=== PATIENT | female | born 1995 | race Caucasian/White ===

== ENCOUNTER 2019-04-05 04:00 | Inpatient (IN) ==
[2019-04-05] MEDS ORDERED: Naloxone 0.4 MG/ML INJ IVP PRN (08:23)
[2019-04-05] MEDS ORDERED: Famotidine 20 MG/2 ML VIAL IVP PRN (08:23)
[2019-04-05] MEDS ORDERED: Metoclopramide 10 MG/2 ML VIAL IVP PRN (08:23)
[2019-04-05] MEDS ORDERED: *HR* Nalbuphine 10 MG/ML AMPUL IVP PRN (08:23)
[2019-04-05] MEDS ORDERED: Ondansetron 4 MG/2 ML VIAL IVP PRN (08:23)
[2019-04-05] MEDS ORDERED: Oxytocin 20 units/ LR 1000 mL 20 UNIT/1,000 ML BAG IVC SCH ×2 (08:30→19:45)
[2019-04-05] MEDS ORDERED: Ringers Solution, Lactated 1,000 ML IVC SCH (08:30)
[2019-04-05 09:02] LABS: Basophils % 0.5 %; Eosinophils % 0.4 %; Hematocrit 35.8 % (35.3-44.9); Hemoglobin 12.3 g/dL (11.5-15.4); Immature Granulocytes % 0.8 % (0-4); Lymphocytes # 1.6 K/mcL (0.6-4.6); Lymphocytes % 19.4 %; Mean Corpuscular HGB Conc 34.4 g/dL (31.6-35.5); Mean Platelet Volume 9.6 fL (9.4-12.4); Monocytes # 0.5 K/mcL (0.0-1.3); Monocytes % 5.4 %; Neutrophils # 6.1 K/mcL (1.6-8.9); Platelet Count 202 K/mcL (140-400); Red Blood Count 3.73 M/mcL (3.82-4.97); Red Cell Distribution Width 12.2 % (11.5-14.5); Segmented Neutrophils % 73.5 %; White Blood Count 8.3 K/mcL (4.3-11.1)
[2019-04-05 09:11] LABS: Amphetamine Screen,Urine Negative ng/mL (Cutoff=1000); Barbiturate Screen,Urine Negative ng/mL (Cutoff=200); Benzodiazepines Screen,Urine Negative ng/mL (Cutoff=200); Cannabinoid Screen,Urine Negative ng/mL (Cutoff = 50); Cocaine Screen,Urine Negative ng/mL (Cutoff= 300); Opiate Screen,Urine Negative ng/mL (Cutoff=300); Phencyclidine Screen,Urine Negative ng/mL (Cutoff=25)
[2019-04-05] MEDS ORDERED: D5% in 0.45% NACL 1,000 ML IVC ONE (11:41)
--- NOTE | 2019-04-05 12:44 | Event Note ---
Date of Encounter: 04/05/19 Time of Encounter: 12:43 Patient doing well. Patient tracing looks good currently. Was having some late decelerations early on. These have since resolved. On vaginal exam patient is 2-3 cm 70% effaced and a -1 station. Rubin induction begun. We will start with Pitocin. Discussed risks of section due to tracing. Patient understands this completely. We will continue induction.
--- NOTE | 2019-04-05 12:48 | OB/GYN History & Physical ---
Date of Encounter: 04/05/19 Time of Encounter: 12:45 History of Present Illness Chief complaint: induction HPI: Ms. Blandon is a 24 year old female , ` who presents today at 39 weeks and 2 days for induction of labor. Patient is doing well today. She is having no complaints. Her induction was discussed she understands this completely and does wish to proceed today. She has no drug allergies. She is currently on vitamins. She is no chronic medical conditions. Surgical history includes wisdom teeth extraction. Socially she denies tobacco, alcohol, illicit drug use. She has no history of abnormal passers, STDs or pelvic infections. Family history is noncontributory. Obstetric history significant for 2 early miscarriages Past Med Surg Social Fam HX - Past Medical History Medical history: no medical history, other Additional medical history: miscarriage x2 Psychiatric history: no psych history - Past Surgical History Surgical History: no surgical history - Social History Smoking Status: Never smoker Smokeless Tobacco Status: No Alcohol use: none Drug use: none - Family History Mother Living Status: Still Living Hx Family Cardiac Disorders: No Hx Family Respiratory Disorders: No Hx Family Cancer: No Hx Family GI Disorders: No Hx Family Genitourinary Disorders: No Hx Family Endocrine Disorder: No Hx Family Musculoskeletal Disorders: No Hx Family Neuromuscular Disorders: No Hx Family Neurologic Disorders: No Hx Family HEENT Disorders: No Hx Family Autoimmune Disorders: No Hx Family Reproductive Disorders: No Hx Family Psychosocial Disorders: No Hx Family Medical Disorders: No Obstetrical History - Pregnancies : 3 Para: 0 Ab's: 2 Livin Medications and Allergies Allergy/AdvReac Type Severity Reaction Status Date / Time No Known Allergies Allergy Verified 04/05/19 08:22 Review of System OB All systems PM: reviewed and no additional remarkable complaints except as stated Exam - Vital Signs Vital signs: Initial Vital Signs Temp Pulse Resp BP 97.3 F L 72 16 117/73 04/05/19 09:24 04/05/19 09:24 04/05/19 09:24 04/05/19 09:24 - Constitutional Constitutional: well developed, well nourished, no acute distress, average body habitus - HEENT HEENT: EOMI, PERRL, Normocephaly - Neck Neck exam: full ROM, normal inspection - Lungs Respiratory exam: CTAB - Cardiovascular Cardiovascular exam: RRR - Abdomen Abdomen: Present: bowel sounds normal, gravid, non tender - Extremities Extremities exam: full ROM - Vagina Vagina: Present: normal moisture - Cervix Dilation: 3 Effacement: 70 Station: -1 - Uterus Uterus exam: Present: normal size Results Result Diagrams: 04/05/19 08:40 Abnormal lab results RBC 3.73 M/mcL (3.82-4.97) L 04/05/19 08:40 All other labs normal. - VTE Reasons for not Prescribing Prophylaxis: Treatment not Indicated - Low risk for VTE
[2019-04-05] MEDS ORDERED: Epidural Premix (fent/bupiv) 110 ML EP ONE (15:21)
[2019-04-05] MEDS ORDERED: Epidural Premix (fent/bupiv) 110 ML EP SCH (15:30)
--- NOTE | 2019-04-05 15:30 | Anesthesia Evaluation PreOp ---
Date of Encounter: 04/05/19 Time of Encounter: 15:30 - Past History Planned Operation: lyla Cardiac History: Denies any Significant Hx Pulmonary History: Denies Any Significant HX PATIENT REGISTRATION CLERK History: Denies Any Significant HX Other Medical History: Denies Any Significant HX Anesthesia History: No Prior Anesthetic Complications : Yes Test: Positive Alcohol Use: none Drug use: none Medications and Allergies Allergy/AdvReac Type Severity Reaction Status Date / Time No Known Allergies Allergy Verified 04/05/19 08:22 - Meds/Allergy Pre-op Review Medications Reviewed: Yes Allergies Reviewed: Yes Beta Blockers on Current Med List: No Anesthesia Results - Labs 04/05/19 08:40 Anesthesia Exam Height: 1.8 Weight: 90kg NPO (# of Hours): mn Pain Scale: 0 - HEENT Pupil (Motor): Pupils equal Mallampati: II Teeth: Normal Oral Opening: Greater than 3 - PATIENT REGISTRATION CLERK LOC: Oriented PATIENT REGISTRATION CLERK Motor: Normal RUE, Normal LUE, Normal RLE, Normal LLE, Normal Face PATIENT REGISTRATION CLERK Sensory: Normal: RUE, LUE, RLE, LLE, Face - Cardiac Rhythm: Regular Murmur: None JVD: No Carotid Bruit: No - Pulmonary Breath Sounds: bilateral Clear Respiratory Effort: Symmetrical Anesthesia Assess/Plan ASA Score: 1 Anesthetic Plan: Epidural Monitoring Plan: Standard Monitors
[2019-04-05] MEDS ORDERED: miSOPROStol 25 MCG TABLET VG SCH (16:00)
--- NOTE | 2019-04-05 16:01 | Anesthesia Procedures ---
Date of Encounter: 04/05/19 Time of Encounter: 16:00 Procedures: Anesthesia - Epidural/Spinal Patient ID/Chart reviewed: Yes Patient examined: Yes OB Eval: : 3 OB Eval: Hx Para: 0 OB Eval: Dilated at (cm): 3 OB Eval: Contractions: Non-stressed pattern Consent Obtained: Yes Site Prep: Aseptic Technique, Sterile prep and drape, Povidone-Iodine 1% Patient position: upright Amount of Local Anesthetic used: 3 Touhy Needle Gauge: 18 Touhy Needle Depth (cm): 6 Catheter Depth at Skin (cm): 10 Test Dose (1.5% Lido + Epi): Volume given (mls): 3 Test Dose Result: Negative Loading Dose Administered: Thru Catheter Infusion Rate (mls/hr): [address]: Tegaderm, Tape Interspace Used: L4-L5 Loss of Resistance (EPHRAIM): Yes Blood: No CSF: No Paresthesia: No
[2019-04-05] MEDS ORDERED: 0.9 % Sodium Chloride 1,000 ML ONE (16:28)
[2019-04-05] MEDS ORDERED: Acetaminophen 325 MG TABLET PO PRN (19:38)
[2019-04-05] MEDS ORDERED: Measles/Mumps/Rubella Vacc 0.5 ML VIAL SQ PRN (19:38)
[2019-04-05] MEDS ORDERED: Rho Immune Globulin 1,500 UNIT SYRINGE IM PRN (19:38)
--- NOTE | 2019-04-05 19:42 | OB/GYN Procedure Note ---
Delivery - Delivery Date: 04/05/19 Provider: Sushant Kramer Intrapartum events: none Delivery induction: howard, misoprostol Delivery augmentation: rupture of membranes, pitocin Delivery monitor: external FHT, external uterine Anesthesia: epidural Quantitated Blood Loss: 300 - Infant (s) Infant A Delivery Date: 04/05/19 Delivery Time: 18:56 Presentation: vertex Position: NEGRITA Route of delivery: Gender: Male Viability: Viable at 1 minute: 8 at 5 mins: 9 Shoulder Dystocia: not encountered Specimens collected: cord blood Placenta: spontaneous Cord: 3 umbilical vessels - Repair Episiotomy: none Laceration Description: Perineal - 2nd Degree - Complications Delivery complications: none Delivery comments: This patient progressed to complete and pushing and had a rapid spontaneous vaginal delivery of a male infant over an intact perineum. Infant's head was in the perineum easily. The rest of the infant was then delivered with 1 push. Infant cried immediately upon delivery. The course Cut. The infant was in past nurse in attendance. Cord bloods obtained. The placenta was delivered spontaneously and intact. There are no cervical, vaginal or periurethral lacerations noted. There was a second-degree perineal laceration repaired with 3 Vicryl suture in usual fashion. Patient delivered a male weight is pending his mother skin the skin Apgars are 81 minute and 9 at 5 minutes. Estimated blood loss 300 mL. - Disposition Mom disposition: stable in LDR disposition: stable in LDR
[2019-04-05] MEDS: Ibuprofen 600 MG TABLET PO PRN (23:30)
[2019-04-06 06:16] LABS: Basophils % 0.2 %; Eosinophils % 0.1 %; Hematocrit 30.9 % (35.3-44.9); Immature Granulocytes % 0.5 % (0-4); Lymphocytes # 1.9 K/mcL (0.6-4.6); Lymphocytes % 12.6 %; Mean Corpuscular Hemoglobin 32.9 pg (28.0-33.3); Mean Corpuscular Volume 96.9 fL (83.0-100.0); Mean Platelet Volume 9.6 fL (9.4-12.4); Monocytes # 0.5 K/mcL (0.0-1.3); Monocytes % 3.4 %; Neutrophils # 12.6 K/mcL (1.6-8.9); Platelet Count 191 K/mcL (140-400); Red Blood Count 3.19 M/mcL (3.82-4.97); Red Cell Distribution Width 12.3 % (11.5-14.5); Segmented Neutrophils % 83.2 %
[2019-04-06 06:24] LABS: Hemoglobin 10.5 g/dL (11.5-15.4); White Blood Count 15.1 K/mcL (4.3-11.1)
[2019-04-06] MEDS: Prenatal Vit/FA 1 EACH TABLET PO SCH (08:09)
[2019-04-06] MEDS: Ibuprofen 600 MG TABLET PO PRN ×2 (08:09→19:10)
--- NOTE | 2019-04-06 09:49 | OB/GYN Progress Note ---
Date of Encounter: 04/06/19 Time of Encounter: 09:47 - Assessment and Plan (1) Vaginal delivery Current Visit: Yes Status: Acute Continue routine care anticipate discharge home tomorrow (2) Breast feeding status of mother Current Visit: Yes Status: Acute Subjective - Subjective Principal diagnosis: status post vaginal delivery Interval history: Patient is day 1. Patient denies any pain at this time. Patient reports normal lochia. Patient meeting day 1 milestones. Patient reports: appetite normal, voiding normally, pain well controlled, ambulating normally : doing well, nursing well Objective - Latest Vital Signs Latest vital signs: Vital Signs Temp Pulse Resp BP Pulse Ox 04/06/19 04:16 98.2 F 58 14 97/58 97 Intake and Output 04/05/19 04/06/19 04/06/19 23:59 07:59 15:59 Intake Total 500 / 500 Output Total 400 / 400 1400 / 1400 Balance -400 / -400 -900 / -900 Intake: Oral 500 / 500 Output: Urine 400 / 400 1400 / 1400 Other: Stool Characteristics Normal for Patient Weight 87.1 kg Patient Weight 04/06/19 23:59 Weight 87.1 kg - Exam Lungs: bilateral: normal Chest: Normal S1, Normal S2 Extremities: Present: normal Abdomen: Present: normal appearance, soft, gravid Uterus: Present: normal, firm Uterus Position: 1 Finger Below Umbilicus, Midline - Labs Labs: Laboratory Results - last 24 hr 04/06/19 05:51 WBC 15.1 H D RBC 3.19 L Hgb 10.5 L D Hct 30.9 L MCV 96.9 MCH 32.9 MCHC 34.0 RDW 12.3 Plt Count 191 MPV 9.6 Immature Gran % 0.5 Seg Neutrophils % 83.2 Lymphocytes % 12.6 Monocytes % 3.4 Eosinophils % 0.1 Basophils % 0.2 Neutrophils # 12.6 H Lymphocytes # 1.9 Monocytes # 0.5 Eosinophils # 0.0 Basophils # 0.0
[2019-04-06] MEDS ORDERED: Benzocaine/Menthol 56 GM AEROSOL SPRAY TP PRN (10:27)
[2019-04-06] MEDS ORDERED: Lanolin 7 G OINT...G. TP PRN (10:27)
[2019-04-07] MEDS: Ibuprofen 600 MG TABLET PO PRN (07:53)
[2019-04-07] MEDS: Prenatal Vit/FA 1 EACH TABLET PO SCH (07:54)
[2019-04-07 08:27] VITALS: BP 110/64
--- NOTE | 2019-04-07 09:48 | Discharge Summary ---
Date of Encounter: 04/07/19 Time of Encounter: 09:45 - Discharge Diagnosis (1) Vaginal delivery Priority: Primary Status: Acute Comments: Stable, meeting all PP milestones, pain well managed, desires discharge, breast feeding - Discharge Medications Prescriptions: New Ferrous Sulfate 325 mg PO DAILY #30 tablet Acetaminophen [Tylenol] 650 mg PO Q6HR PRN tablet PRN Reason: Mild Pain Ibuprofen [Motrin] 600 mg PO Q6HR PRN #60 tablet PRN Reason: Cramping Benzocaine/Menthol [place] [Dermoplast [place]] 1 appl TP QID PRN aerosol PRN Reason: See Comments Docusate [Colace] 100 mg PO BID #30 capsule Lanolin [Lansinoh] 1 appl TP Q4HR PRN oint...g. PRN Reason: Continued Vitamin Tablet 100 mg PO DAILY Discontinued Aspirin 81 mg PO DAILY Home Medications: Vitamin Tablet 100 mg PO DAILY 04/05/19 [History] Acetaminophen [Tylenol] 650 mg PO Q6HR PRN tablet 04/07/19 [Rx] Benzocaine/Menthol [place] [Dermoplast [place]] 1 appl TP QID PRN aerosol 04/07/19 [Rx] Docusate [Colace] 100 mg PO BID #30 capsule 04/07/19 [Rx] Ferrous Sulfate 325 mg PO DAILY #30 tablet 04/07/19 [Rx] Ibuprofen [Motrin] 600 mg PO Q6HR PRN #60 tablet 04/07/19 [Rx] Lanolin [Lansinoh] 1 appl TP Q4HR PRN oint...g. 04/07/19 [Rx] Allergies/Adverse Reactions: Allergy/AdvReac Type Severity Reaction Status Date / Time No Known Allergies Allergy Verified 04/05/19 08:22 Data Procedures and tests throughout hospitalization: Laboratory Tests 04/05/19 04/05/19 04/06/19 08:40 08:40 05:51 WBC 8.3 15.1 H D RBC 3.73 L 3.19 L Hgb 12.3 10.5 L D Hct 35.8 30.9 L MCV 96.0 96.9 MCH 33.0 32.9 MCHC 34.4 34.0 RDW 12.2 12.3 Plt Count 202 191 MPV 9.6 9.6 Immature Gran % 0.8 0.5 Seg Neutrophils % 73.5 83.2 Lymphocytes % 19.4 12.6 Monocytes % 5.4 3.4 Eosinophils % 0.4 0.1 Basophils % 0.5 0.2 Neutrophils # 6.1 12.6 H Lymphocytes # 1.6 1.9 Monocytes # 0.5 0.5 Eosinophils # 0.0 0.0 Basophils # 0.0 0.0 Urine Opiates Screen Negative Ur Buprenorphine Scrn Negative Ur Barbiturates Screen Negative Ur Phencyclidine Scrn Negative Ur Amphetamines Screen Negative U Benzodiazepines Scrn Negative Urine Cocaine Screen Negative U Marijuana (THC) Screen Negative Ur Drug Screen Interp See Below Date of admission: 04/05/19 07:59 Primary care physician: PCP NONE Consults: 04/05/19 19:38 Consult to Delivery Coordinator [CONS] Routine Comment: Vaginal delivery, consult needed Discharging clinician: Trice Lynch Anticipated date of discharge: 04/07/19 - Patient Status Disposition: Home, Self-Care Condition: Good Functional capacity at discharge: independent ambulation Overall status at discharge: patient is back to baseline - Discharge Instructions Follow Up With: NONE,PCP [Primary Care Provider] - Sushant Kramer MD [Partnered Physician] - - Diet and Activity Activity: resume usual activities as tolerated Diet: regular diet Hospital Course Reason for admission: IUP at term Delivery: Episiotomy: none Laceration: 2nd degree Other procedures: none complications: none Discharge diagnosis: IUP at term delivered baby: male Hospital course: Delivery - Delivery Date: 04/05/19 Provider: Sushant Kramer Intrapartum events: none Delivery induction: howard, misoprostol Delivery augmentation: rupture of membranes, pitocin Delivery monitor: external FHT, external uterine Anesthesia: epidural Quantitated Blood Loss: 300 - (s) Infant A Infant Delivery Date: 04/05/19 Infant Delivery Time: 18:56 Presentation: vertex Position: NEGRITA Route of delivery: Gender: Male Viability: Viable at 1 minute: 8 at 5 mins: 9 Shoulder Dystocia: not encountered Specimens collected: cord blood Placenta: spontaneous Cord: 3 umbilical vessels - Repair Episiotomy: none Laceration Description: Perineal - 2nd Degree - Complications Delivery complications: none Delivery comments: This patient progressed to complete and pushing and had a rapid spontaneous vag inal delivery of a male over an intact perineum. Infant's head was in the perineum easily. The rest of the was then delivered with 1 push. cried immediately upon delivery. The course Cut. The infant was in past nurse in attendance. Cord bloods obtained. The placenta was delivered spontaneously and intact. There are no cervical, vaginal or periurethral lacerations noted. There was a second-degree perineal laceration repaired with 3 Vicryl suture in usual fashion. Patient delivered a male infant weight is pending his mother skin the skin Apgars are 81 minute and 9 at 5 minutes. Estimated blood loss 300 mL. - Disposition Mom disposition: stable in PP and appropriate for discharge Time Attestation: Total time spent providing and/or coordinating discharge services: Time Spent: Less than 30 minutes Exam - Constitutional Vitals: Temp Pulse Resp BP Pulse Ox 97.9 F 59 20 110/64 98 04/07/19 08:26 04/07/19 08:26 04/07/19 08:26 04/07/19 08:26 04/07/19 08:26 General appearance IM: A&O X 3 - Respiratory Respiratory exam: Present: CTAB - Cardiovascular Cardiovascular exam IM: Present: RRR - GI/Abdominal GI/Abdominal exam IM: soft - Uterine Tone: Firm Uterus Position: At Umbilicus - Extremities Exam Extremities exam IM: Present: normal capillary refill, normal inspection - Neurological Exam Neurological exam: normal gait, oriented X3 - Psychiatric Additional comments: reports good mood
== END 2019-04-07 12:28 | disposition home or self-care (01) | DRG 807 ==
LOC: 1NENULAB 07:59 → 1NENUOBS 22:27
PROVIDERS: ADMIT Obstetrics & Gynecology; ATTEND Obstetrics & Gynecology

== ENCOUNTER → 2020-10-10 13:54 | Observation (INO) | END | disposition home or self-care (01) | LOC: 1NENULAB | PROVIDERS: ADMIT Obstetrics & Gynecology; ATTEND Obstetrics & Gynecology ==

== ENCOUNTER → 2020-10-19 13:35 | Observation (INO) ==
[2020-10-19 12:09] LABS: Bacteria,Urine Few per hpf (None-Few); Bilirubin,Urine Negative (Negative); Blood,Urine Negative (Negative); Clarity,Urine Turbid (Clear); Color,Urine Light-Yellow (Yellow); Glucose,Urine (UA) Normal (Normal); Ketones,Urine Negative (Negative); Leukocyte Esterase,Urine Large (Negative); Mucus,Urine Few per lpf (None-Few); Nitrite,Urine Negative (Negative); Protein,Urine Negative (Neg-Trace); Specific Gravity,Urine 1.012 (1.010-1.025); Squamous Epithelial Cell,Urine Few per hpf (None-Few); Urobilinogen,Urine Normal (Normal)
[~2020-10-19 13:35] MED LIST: Acetaminophen 325 MG TABLET PO ONE; Nitrofurantoin (BID) 100 MG CAPSULE PO ONE; Ringers Solution, Lactated 1,000 ML IVC ONE
== END | disposition home or self-care (01) ==
LOC: 1NENULAB
PROVIDERS: ADMIT Student in an Organized Health Care Education/Training Program; ATTEND Student in an Organized Health Care Education/Training Program

== ENCOUNTER 2020-11-24 22:23 | Inpatient (IN) ==
[~2020-11-24 22:23] MED LIST changes: +*HR* Nalbuphine 10 MG/ML AMPUL IV PRN; -Acetaminophen 325 MG TABLET PO ONE; +Azithromycin 500 MG in 0.9 % Sodium Chloride 250 ML IVPB ONE; +Famotidine 20 MG/2 ML VIAL IVP PRN; +Metoclopramide 10 MG/2 ML VIAL IVP PRN; +Naloxone 0.4 MG/ML INJ IVP PRN; -Nitrofurantoin (BID) 100 MG CAPSULE PO ONE; +Ondansetron 4 MG/2 ML VIAL IVP PRN; -Ringers Solution, Lactated 1,000 ML IVC ONE
[2020-11-24] MEDS ORDERED: Oxytocin 20 units/ LR 1000 mL 20 UNIT/1,000 ML BAG IVC SCH (22:30)
[2020-11-24] MEDS ORDERED: Ringers Solution, Lactated 1,000 ML IVC SCH (22:30)
[2020-11-24 22:38] LABS: Basophils % 0.3 %; Eosinophils # 0.1 K/mcL (0.0-0.6); Eosinophils % 0.5 %; Hematocrit 36.8 % (35.3-44.9); Hemoglobin 12.1 g/dL (11.5-15.4); Immature Granulocytes % 0.5 % (0-4); Lymphocytes # 2.1 K/mcL (0.6-4.6); Lymphocytes % 18.2 %; Mean Corpuscular HGB Conc 32.9 g/dL (31.6-35.5); Mean Corpuscular Hemoglobin 31.4 pg (28.0-33.3); Mean Corpuscular Volume 95.6 fL (83.0-100.0); Mean Platelet Volume 9.4 fL (9.4-12.4); Monocytes # 0.6 K/mcL (0.0-1.3); Monocytes % 4.9 %; Neutrophils # 8.8 K/mcL (1.6-8.9); Platelet Count 230 K/mcL (140-400); Red Blood Count 3.85 M/mcL (3.82-4.97); Red Cell Distribution Width 13.3 % (11.5-14.5); Segmented Neutrophils % 75.6 %; White Blood Count 11.6 K/mcL (4.3-11.1)
[2020-11-24 22:48] LABS: Amphetamine Screen,Urine Negative ng/mL (Cutoff=1000); Barbiturate Screen,Urine Negative ng/mL (Cutoff=200); Benzodiazepines Screen,Urine Negative ng/mL (Cutoff=200); Cannabinoid Screen,Urine Negative ng/mL (Cutoff = 50); Cocaine Screen,Urine Negative ng/mL (Cutoff= 300); Opiate Screen,Urine Negative ng/mL (Cutoff=300); Phencyclidine Screen,Urine Negative ng/mL (Cutoff=25)
[2020-11-24] MEDS ORDERED: *HR* FentaNYL (PF) 100 MCG/2 ML VIAL EP ONE (23:22)
[2020-11-24] MEDS ORDERED: Ropivacaine/PF 0.2% 20 ML VIAL EP ONE (23:22)
[2020-11-24] MEDS ORDERED: EPHEDrine 50 MG/ML VIAL IVP PRN (23:22)
[2020-11-24] MEDS ORDERED: Epidural Premix (fent/bupiv) 110 ML EP SCH (23:30)
[2020-11-24] MEDS ORDERED: *HR* FentaNYL (PF) 100 MCG/2 ML VIAL ONE (23:39)
[2020-11-24] MEDS ORDERED: Ropivacaine/PF 0.2% 20 ML VIAL ONE (23:39)
[2020-11-25] MEDS ORDERED: *HR* FentaNYL (PF) 100 MCG/2 ML VIAL ONE (00:04)
[2020-11-25] MEDS ORDERED: Benzocaine/Menthol 56 GM AEROSOL SPRAY TP PRN (05:22)
[2020-11-25] MEDS ORDERED: Lanolin 7 G OINT...G. TP PRN (05:22)
[2020-11-25] MEDS ORDERED: Oxytocin 20 units/ LR 1000 mL 20 UNIT/1,000 ML BAG IVC SCH (05:22)
[2020-11-25] MEDS ORDERED: Ibuprofen 600 MG TABLET PO PRN (05:22)
[2020-11-25] MEDS: *HR* HYDROcodone/Acet 5/325 mg TABLET PO PRN ×2 (08:29→16:59)
[2020-11-25] MEDS: Prenatal Vit/FA 1 EACH TABLET PO SCH (08:29)
[2020-11-25] MEDS: Acetaminophen 325 MG TABLET PO PRN (20:52)
[2020-11-26] MEDS: Acetaminophen 325 MG TABLET PO PRN (06:30)
[2020-11-26 07:51] VITALS: BP 113/72
[2020-11-26] MEDS: Prenatal Vit/FA 1 EACH TABLET PO SCH (08:14)
== END 2020-11-26 13:30 | disposition home or self-care (01) | DRG 807 ==
LOC: 1NENULAB → 1NENUOBS 11-25 05:22
PROVIDERS: ADMIT Registered Nurse; ATTEND Registered Nurse